=== PATIENT | male | born 1935 | race Caucasian/White ===

== ENCOUNTER 2016-08-14 00:21 | Emergency (ER) | payer OTHER, MEDICARE ==
[~2016-08-14 00:21] MED LIST: ALLOPURINOL300 MG PO; CALCIUM CARBON500 MG PO; COREG12.5 MG PO; COZAAR25 MG PO; EC-81 ASPIRIN81 MG PO; HUMALIN R100 UNITS/ SC; LIPITOR20 MG PO; LOPRESSOR25 MG PO; METFORMIN HCL500 MG PO; METOPROLOL SUCC25 MG PO; PLAVIX75 MG PO; VITAMIN D-31000 UNIT PO
--- NOTE | 2016-08-14 03:36 | ED CLINICAL REPORT ---
Clinical Report - Physicians/Mid Levels [facility] [address] [place] [address] 08/14/2016 0:24 Patient: YOU DALTON Time Seen: 0027. Arrived- By private vehicle. Historian- patient. HISTORY OF PRESENT ILLNESS Chief Complaint: HEADACHE. Is still present (no change). This started past several days. It was abrupt in onset and has been intermittent but is not gone now. Onset during rest. It is described as "pain". No neck pain. At its maximum, severity described as moderate. When seen in the E.D., severity described as moderate. Modifying factors: relieved by nothing. Not worsened by anything. No preceding symptoms, blurred vision, photophobia, numbness or weakness. No recent travel. Similar symptoms previously: None. Recent medical care: Not recently seen/assessed. REVIEW OF SYSTEMS No skin rash. All systems otherwise negative, except as recorded above. PAST HISTORY See nurses notes. Medications: HumuLIN N Subcutaneous 70 units , in AM and PM. HumuLIN R Injection 15 uNITS, 3 X daily (before each meal). Losartan Potassium Oral, daily. MetFORMIN HCl Oral 1000 in AM and 1500 in PM. Metoprolol Tartrate Oral unknown, daily. Allergies: Vicodin. Definite Severe(swelling). SOCIAL HISTORY Never smoker. No alcohol use or drug use. No recent travel. Is a local resident. ADDITIONAL NOTES The nursing notes have been reviewed. PHYSICAL EXAM Vital Signs: 08/14/2016 00:27 BP: 198/84. HR: 116. RR: 28. O2 saturation: 95%. Temp: 98.3 F. Pain level now: 8/10. Hypertensive. Oxygen saturation normal. Appearance: Alert. No acute distress. Eyes: Pupils equal, round and reactive to light. Eyes normal inspection. No conjunctival findings. (pupils are equally round and reactive to light at 4 mm. Extraocular movements are intact. No nystagmus. Funduscopic examination without any signs of papilledema. Normal retinal vasculature.). ENT: Ears normal. Nose normal. Pharynx normal. Neck: Normal inspection. Neck supple. CVS: Normal heart rate and rhythm. Heart sounds normal. Pulses normal. Respiratory: No respiratory distress. Breath sounds normal. Abdomen: Soft and nontender. No organomegaly. Skin: Skin warm and dry. Normal skin color. No rash. Normal skin turgor. Extremities: Extremities exhibit normal ROM. No lower extremity edema. Neuro: Oriented X 3. Alert. Mood/affect normal. Speech normal. Cranial nerves normal (as tested). No cerebellar findings. No motor deficit. No sensory deficit. Reflexes normal. LABS, X-RAYS, AND EKG EKG: Normal sinus rhythm. Normal P waves. Normal JEREMIAS. Normal QRS complex. Normal axis. Normal ST and T waves, QT and QTc. The study has been interpreted contemporaneously by me. The study has been independently viewed by me. The EKG appears to be a good tracing. PROGRESS AND PROCEDURES Course of Care: the patient is a pleasant 81-year-old male with past medical history significant for diabetes and hypertension presenting for evaluation of headache. Patient's headache is intermittent. Does not appear to be consistent with subarachnoid hemorrhage or meningitis. Patient will be given a course of medications to treat his headache. We'll also provide patient with antihypertensives IVWhite's here in the emergency department for his elevated blood pressure. Patient's examination Does not show any signs of focal neurological deficit. Patient is agreeable to treatment plan. Patient's headache is likely result of elevated blood pressure. Suspect that once patient's blood pressures improved as well as with headache medication, patient will feel significantly better. Patient's blood pressure had significantly improved. Patient's headache is also well controlled here in the emergency department. Because of the patient's nonfocal examination improved symptoms as well as overall nontoxic appearance, feel the patient is a good outpatient candidate. I discussion with patient in regards to elevated blood pressure and future risks of cardiac disease as well as stroke in the future. Recommended patient have a dialogue with his doctor in regards to blood pressure medication control as well as starting and diary to monitor blood pressures throughout the day. Discussed with patient his workup here in the emergency department including home care, follow-up, and return precautions. All questions have been answered. The patient expressed understanding of these instructions and was agreeable to them. Disposition: Discharged. Condition: good. CLINICAL IMPRESSION Acute headache. Uncontrolled essential hypertension (acute). INSTRUCTIONS Warnings: GENERAL WARNINGS: Return or contact your physician immediately if your condition worsens or changes unexpectedly, if not improving as expected, or if other problems arise. SPECIFICALLY, return if you develop fever, vomiting, numbness, weakness, difficulty thinking, visual disturbances, fainting or extreme fatigue. Your Current Medications: CONTINUE TAKING THE FOLLOWING MEDICATIONS: HumuLIN N Subcutaneous : 70 units in AM and PM. HumuLIN R Injection : 15 uNITS 3 X daily, before each meal. Losartan Potassium Oral : daily. MetFORMIN HCl Oral : 1000 in AM and 1500 in PM. Metoprolol Tartrate Oral : unknown daily. Follow-up: Return to the emergency department as needed. Follow up with your doctor in three days. Reason for referral: recheck today's concerns. Summary of care provided to patient via paper. Screening today revealed the patient's blood pressure to be in the normal range. The patient should follow up with a primary care provider for blood pressure management. Understanding of the discharge instructions verbalized by patient. (Electronically signed by Jay Livingston Dr. 08/19/2016 3:06)
--- NOTE | 2016-08-14 03:36 | ED ORDER SUMMARY ---
..... Patient: YOU DALTON OrderSheet [facility] VisitID: [id number] [place] [address] 81y, M Registration Date/Time: 08/14/2016 ORDER SHEET Weight: 117.9 kg (stated) Allergies: Vicodin GENERAL ORDERS: EKG - ER Stat (00:51 08/14/2016 DDavis R.N. per protocol) (Ack 0:52 SRedmond) (0:58 LMuller) MEDICATION ORDERS: Phenergan IV 25 mg (HIGH ALERT MEDICATION, NOW) (01:16 08/14/2016 Marion Sharp) (Ack 1:20 DDavis R.N.) (1:42 DDavis R.N.) - (lisinopril 20 mg PO once) (02:09 08/14/2016 Marion Sharp) (2:15 EInderbitzen R.N.) IV FLUIDS: Toradol IV 30 mg (NOW) (01:16 08/14/2016 Marion Sharp) (Ack 1:20 DDavis R.N.) (1:42 DDavis R.N.) Benadryl IV 25 mg (NOW) (01:16 08/14/2016 Marion Sharp) (Ack 1:20 DDavis R.N.) (1:41 DDavis R.N.) Metoprolol IV 5 mg (HIGH ALERT MEDICATION, NOW) (01:17 08/14/2016 Marion Sharp) (Ack 1:20 DDavis R.N.) (1:41 DDavis R.N.) Metoprolol IV 5 mg (HIGH ALERT MEDICATION, NOW) (02:54 08/14/2016 Marion Sharp) (3:20 DDavis R.N.) ORDER SHEET NOTES: [Electronically signed by Oli Mendez R.N. (03:48 08/14/2016)] [Electronically signed by Jay Livingston Dr. (03:06 08/19/2016)] [Electronically locked/signed by Oli Mendez R.N. (03:48 08/14/2016)]
--- NOTE | 2016-08-14 03:36 | ED ORDER SUMMARY ---
..... Patient: YOU DALTON OrderSheet [facility] VisitID: [id number] [place] [address] 81y, M Registration Date/Time: 08/14/2016 ORDER SHEET Weight: 117.9 kg (stated) Allergies: Vicodin GENERAL ORDERS: EKG - ER Stat (00:51 08/14/2016 DDavis R.N. per protocol) (Ack 0:52 SRedmond) (0:58 LMuller) MEDICATION ORDERS: Phenergan IV 25 mg (HIGH ALERT MEDICATION, NOW) (01:16 08/14/2016 Marion Sharp) (Ack 1:20 DDavis R.N.) (1:42 DDavis R.N.) - (lisinopril 20 mg PO once) (02:09 08/14/2016 Marion Sharp) (2:15 EInderbitzen R.N.) IV FLUIDS: Toradol IV 30 mg (NOW) (01:16 08/14/2016 Marion Sharp) (Ack 1:20 DDavis R.N.) (1:42 DDavis R.N.) Benadryl IV 25 mg (NOW) (01:16 08/14/2016 Marion Sharp) (Ack 1:20 DDavis R.N.) (1:41 DDavis R.N.) Metoprolol IV 5 mg (HIGH ALERT MEDICATION, NOW) (01:17 08/14/2016 Marion Sharp) (Ack 1:20 DDavis R.N.) (1:41 DDavis R.N.) Metoprolol IV 5 mg (HIGH ALERT MEDICATION, NOW) (02:54 08/14/2016 Marion Sharp) (3:20 DDavis R.N.) ORDER SHEET NOTES: [Electronically signed by Oli Mendez R.N. (03:48 08/14/2016)] [Electronically signed by Jay Livingston Dr. (03:06 08/19/2016)] [Electronically locked/signed by Oli Mendez R.N. (03:48 08/14/2016)]
--- NOTE | 2016-08-14 03:36 | ED NURSING NOTES ---
Clinical Report - Nurses [facility] [address] [place] [address] 08/14/2016 0:24 [id number] Triage time 00:28. Acuity: LEVEL 3. Chief Complaint: HEADACHE and (high blood pressure). Alert. DONAL COMA SCORE: Donal Coma Scale: 15- eyes open spontaneously (4); best verbal response- oriented x 4 (5); best motor response- obeys commands (6). --00:31 Oli Mendez R.N. 00:27 08/14/16. BP: 198/84 taken on the left arm, via an automated monitor, while sitting. HR: 116. RR: 28 (regular and unlabored). O2 saturation: 95% on room air. Temp: 98.3 F. Pain level now: 12/17. --00:31 Oli Mendez R.N. Weight: 117.9 kg stated. Height/Length: 70 inches Per Patient. BMI: 37.3. --00:27 Oli Mendez R.N. Medications HumuLIN N Subcutaneous 70 units , in AM and PM. HumuLIN R Injection 15 uNITS, 3 X daily (before each meal). Losartan Potassium Oral, daily. MetFORMIN HCl Oral 1000 in AM and 1500 in PM. Metoprolol Tartrate Oral unknown, daily. --00:29 Oli Mendez R.N. Allergies Vicodin. Definite Severe(swelling) --00:29 Oli Mendez R.N. History Arrived by private vehicle. Historian: patient. Accompanied by spouse. The patient has had nausea. SOCIAL HX: Never smoker. No alcohol use or drug use. --00:31 Oli Mendez R.N. This started 5 days ago. --00:32 Oli Mendez R.N. PROBLEMS: Neuropathy. Diabetes Mellitus. --00:29 Oli Mendez R.N. ADDITIONAL SURGERIES: Angioplasty of blood vessel. one Stent of cardia artery . Shoulder Surgery. Tonsillectomy. --00:29 Oli Mendez R.N. Interventions ID band on patient. To treatment room. --00:31 Oli Mendez R.N. PHYSICAL ASSESSMENT To room via wheelchair. ( pt states having an intermittent headache for "5 days" and having nausea with one episode of vomiting tonight.). GENERAL / NEURO / PSYCH: Alert. Oriented X 4. Speech within normal limits. RESPIRATORY: Respirations not labored. Breath sounds within normal limits. CVS: Capillary refill less than 2 seconds. SKIN: Skin is warm and dry. --00:33 Oli Mendez R.N. ( sinus rhythm on monitor). --00:34 Oli Mendez R.N. NURSING PROGRESS NOTES telecom coordinator, pulse oximeter and NIBP monitor placed on patient. Head of bed elevated. Reassurance given. Two patient identifiers checked. Call light placed in reach. Side rails up x 1. Bed placed in lowest position. Brakes of bed on. Patient ready for evaluation- chart flagged. Patient waiting for evaluation. --00:34 Oli Mendez R.N. 00:48 08/14/2016 Site #1 started via IV in the left hand with an 20g angiocath, with aseptic technique and good blood return; one attempt. Blood drawn. Labeled in the presence of the patient and held. Saline lock flushed with 10 mL saline. --00:48 Sruthi Kitchen R.N. ( EKG completed at 00:[address] Jay Hayes). --01:00 Oli Mendez R.N. <<STRICKEN ENTRY-- 01:31 08/14/2016 Metoprolol (Metoprolol Tartrate) IVP 5 mg given over 2 minute(s) via site #1. Allergies verified and confirmed 5 rights. IV patency established. IV site checked: no pain, redness, or swelling. IV flushed thoroughly pre- and post-medication administration. IVP given by RN. --01:41 Oli Mendez R.N. --END STRIKE>> Correction. Charted in error, 1 mg was given at this time. Dr. Jay Hayes was notified and is aware of error. --03:24 Oli Mendez R.N. 01:31 08/14/2016 Metoprolol (Metoprolol Tartrate) IVP 1 mg given over 2 minute(s) via site #1. Allergies verified and confirmed 5 rights. IV patency established. IV site checked: no pain, redness, or swelling. IV flushed thoroughly pre- and post-medication administration. IVP given by RN. --03:24 Oli Mendez R.N. 01:33 08/14/2016 Benadryl (DiphenhydrAMINE HCl) IVP 25 mg given over 2 minute(s) via site #1. Allergies verified, confirmed 5 rights and sedative warning given to the patient. IV patency established. IV site checked: no pain, redness, or swelling. IV flushed thoroughly pre- and post-medication administration. IVP given by RN. --01:41 Oli Mendez R.N. 01:36 08/14/2016 PHENERGAN (Promethazine HCl) IVP 25 mg given over 2 minute(s) via site #1. Allergies verified and confirmed 5 rights. IV patency established. IV site checked: no pain, redness, or swelling. IV flushed thoroughly pre- and post-medication administration. IVP given by RN. --01:42 Oli Mendez R.N. 01:38 08/14/2016 Toradol IVP 30 mg given over 2 minute(s) via site #1. Allergies verified and confirmed 5 rights. IV patency established. IV site checked: no pain, redness, or swelling. IV flushed thoroughly pre- and post-medication administration. IVP given by RN. --01:42 Oli Mendez R.N. 02:15 08/14/2016 Lisinopril PO Tablets 20 mg given. Allergies verified and confirmed 5 rights. --02:15 Ninfa Mosley R.N. 03:15 08/14/2016 Metoprolol (Metoprolol Tartrate) IVP 5 mg given over 5 minute(s) via site #1. Allergies verified and confirmed 5 rights. IV patency established. IV site checked: no pain, redness, or swelling. IV flushed thoroughly pre- and post-medication administration. IVP given by RN. --03:21 Oli Mendez R.N. DISPOSITION / DISCHARGE 03:40 08/14/2016 Site #1 removed upon discharge. Manual pressure and bandage applied. --03:45 Oli Menedz R.N. Departure time: 03:45. Condition at departure: improved and stable. No learning barriers present. Discharge instructions provided and reviewed with the patient and spouse. Reviewed warnings. Treatments reviewed. Reviewed referrals. Patient verbalized understanding. Written instructions provided in Latvian. The patient was discharged home and accompanied by spouse. He left the Emergency Department in a wheelchair and via private vehicle. Spouse driving. --03:47 Oli Mendez R.N. 03:45 08/14/16. BP: 162/76 taken while sitting. HR: 73 (regular). RR: 27 (regular and unlabored). O2 saturation: 96% on room air. Pain level now: 05/19. Additional comments: NSR on monitor. --03:47 Oli Mendez R.N. Locked/Released at 08/14/2016 3:48 by Oli Mendez R.N.
--- NOTE | 2016-08-19 03:07 | ED MED RECONCILIATION SUMMARY ---
Patient: YOU DALTON Medication Reconciliation Report [facility] VisitID: [id number] [address] [place] [address] 81y, M Registration Date/Time: 08/14/2016 Weight: 117.9 kg Height/Length: 70 in. BMI: 37.3 ALLERGIES: Vicodin The patient's Home Medications are listed below: CONTINUE TAKING THE FOLLOWING MEDICATIONS: HumuLIN N Subcutaneous 70 units , in AM and PM HumuLIN R Injection 15 uNITS, 3 X daily, before each meal Losartan Potassium Oral, daily MetFORMIN HCl Oral 1000 in AM and 1500 in PM Metoprolol Tartrate Oral unknown, daily The source(s) of the original Home Medication information: Not obtained. The following Medications were given to the patient in the Emergency Department: Metoprolol [IVP] IVP 1 mg, administered: 08/14/2016 1:31:00 AM Benadryl [IVP] IVP 25 mg, administered: 08/14/2016 1:33:00 AM PHENERGAN [IVP] IVP 25 mg, administered: 08/14/2016 1:36:00 AM Toradol [IVP] IVP 30 mg, administered: 08/14/2016 1:38:00 AM Lisinopril [PO] PO 20 mg, administered: 08/14/2016 2:15:00 AM Metoprolol [IVP] IVP 5 mg, administered: 08/14/2016 3:15:00 AM The following Medications were prescribed to the patient: None.
--- NOTE | 2016-08-19 03:07 | ED MED RECONCILIATION SUMMARY ---
Patient: YOU DALTON Medication Reconciliation Report [facility] VisitID: [id number] [address] [place] [address] 81y, M Registration Date/Time: 08/14/2016 Weight: 117.9 kg Height/Length: 70 in. BMI: 37.3 ALLERGIES: Vicodin The patient's Home Medications are listed below: CONTINUE TAKING THE FOLLOWING MEDICATIONS: HumuLIN N Subcutaneous 70 units , in AM and PM HumuLIN R Injection 15 uNITS, 3 X daily, before each meal Losartan Potassium Oral, daily MetFORMIN HCl Oral 1000 in AM and 1500 in PM Metoprolol Tartrate Oral unknown, daily The source(s) of the original Home Medication information: Not obtained. The following Medications were given to the patient in the Emergency Department: Metoprolol [IVP] IVP 1 mg, administered: 08/14/2016 1:31:00 AM Benadryl [IVP] IVP 25 mg, administered: 08/14/2016 1:33:00 AM PHENERGAN [IVP] IVP 25 mg, administered: 08/14/2016 1:36:00 AM Toradol [IVP] IVP 30 mg, administered: 08/14/2016 1:38:00 AM Lisinopril [PO] PO 20 mg, administered: 08/14/2016 2:15:00 AM Metoprolol [IVP] IVP 5 mg, administered: 08/14/2016 3:15:00 AM The following Medications were prescribed to the patient: None.
--- NOTE | 2016-08-19 03:07 | ED DISCHARGE INSTRUCTIONS ---
Patient: YOU DALTON General Instructions [facility] VisitID: [id number] [place] [address] 81y, M Registration Date/Time: 08/14/2016 Acute headache. Uncontrolled essential hypertension (acute). INSTRUCTIONS Warnings: GENERAL WARNINGS: Return or contact your physician immediately if your condition worsens or changes unexpectedly, if not improving as expected, or if other problems arise. SPECIFICALLY, return if you develop fever, vomiting, numbness, weakness, difficulty thinking, visual disturbances, fainting or extreme fatigue. Your Current Medications: CONTINUE TAKING THE FOLLOWING MEDICATIONS: HumuLIN N Subcutaneous : 70 units in AM and PM. HumuLIN R Injection : 15 uNITS 3 X daily, before each meal. Losartan Potassium Oral : daily. MetFORMIN HCl Oral : 1000 in AM and 1500 in PM. Metoprolol Tartrate Oral : unknown daily. Follow-up: Return to the emergency department as needed. Follow up with your doctor in three days. Reason for referral: recheck today's concerns. Summary of care provided to patient via paper. Screening today revealed the patient's blood pressure to be in the normal range. The patient should follow up with a primary care provider for blood pressure management. Understanding of the discharge instructions verbalized by patient. ADDITIONAL INFORMATION Hypertension, Out Of Control (Established) Your blood pressure was unusually high today. This can occur as a result of missing doses of your blood pressure medicine. Some asthma inhalers, decongestants, diet pills, and street drugs such as cocaine and amphetamine can worsen hypertension. An increase in body weight, increase in salt intake, smoking, and caffeine are other causes. Emotional upset or acute pain can cause a sudden rapid rise in blood pressure which may return to normal after a period of rest. A normal blood pressure is less than 140/90. The first (top) number is the systolic pressure. The second (bottom) number is the diastolic pressure. Hypertension exists when either the top number is 140 or higher, OR the bottom number is 90 or higher on repeated measurements. Home Care: All patients with high blood pressure should do the following to lower their pressure. If you are on blood pressure medicines, then these methods may reduce or eliminate your need for medicines in the future. Begin a weight-loss program if you are overweight. Reduce your salt intake. Avoid high-salt foods (olives, pickles, smoked meats, salted potato chips, etc.). Do not add salt to your food at the table. Use only small amounts of salt when cooking. Begin an exercise program. Discuss with your doctor what type of exercise program would be best for you. It doesnt have to be difficult. Even brisk walking for 20 minutes3 times a week is a good form of exercise. Avoid medicines which contain heart stimulants. This includes many cold and sinus decongestant pills and sprays as well as diet pills. Check the warnings about hypertension on the label. Stimulants such as amphetamine or cocaine could be lethal for someone with hypertension. Never take these. Limit your caffeine intake or switch to decaf. Stop smoking. If you are a long-time smoker, this can be hard. Enroll in a stop-smoking program to improve your chance of success. Talk to your physician about ways to improve your chance of success. Learning how to handle stress better is an important part of any program to lower blood pressure. Learn about relaxation methods such as meditation, yoga, or biofeedback. If medicines were prescribed, take them exactly as directed. Missing doses may cause your blood pressure to get out of control. Consider buying an automatic blood pressure machine (available at many pharmacies). Use this to monitor your blood pressure and report to your doctor. Follow Up: Regular visits to your own doctor for blood pressure checks and medicine adjustment is an important part of your care. Make a follow-up appointment as directed by our staff. Get Prompt Medical Attention if any of the following occur: Chest, arm, shoulder, neck, or upper back pain Shortness of breath Severe headache Throbbing or rushing sound in the ears Nosebleed Extreme drowsiness, confusion, or fainting Dizziness or vertigo (dizziness with spinning sensation) Weakness of an arm or leg or one side of the face Difficulty with speech or vision Headache [Unspecified] The cause of your headache today is not clear, but it does not appear to be the sign of any serious illness. Under stress, some people tense the muscles of their shoulder, neck and scalp without knowing it. If this condition lasts long enough, a TENSION HEADACHE can occur. A MIGRAINE HEADACHE is caused by changes in blood flow to the brain. A migraine attack may be triggered by emotional stress, hormone changes during the menstrual cycle, oral contraceptives, alcohol use, certain foods containing tyramine, eye strain, weather changes, missing meals, lack of sleep or oversleeping. Other causes of headache include a viral illness with high fever, head injury with concussion, sinus, ear or throat infection, dental pain and TMJ (jaw joint) pain. More serious but less common causes of headache include stroke, brain hemorrhage, brain tumor, meningitis and encephalitis. Home Care: If you were given pain medicine for this headache, do not drive yourself home. Arrange for a ride, instead. When you get home, try to sleep. You should feel much better when you wake up. Apply heat to the back of your neck to relieve neck muscle spasm. Migraine headaches may respond best to an ice pack on the forehead or at the base of the skull. If you are having nausea or vomiting, follow a light diet until your headache is relieved. If you have a migraine type headache, use sunglasses when in the daylight or around bright indoor lighting until symptoms improve. Bright glaring light can worsen this kind of headache. Follow Up with your doctor if the headache is not better within the next 24 hours. If you have frequent headaches you should discuss a treatment plan with your primary care doctor. By being aware of the earliest signs of headache, and starting treatment right away, you may be able to stop the pain yourself. Get Prompt Medical Attention if any of the following occur: Worsening of your head pain or no improvement within 24 hours Repeated vomiting (unable to keep liquids down) Fever of 100.4F (38C) or higher, or as directed by your healthcare provider Stiff neck Extreme drowsiness, confusion or fainting Dizziness, vertigo (dizziness with spinning sensation) Weakness of an arm or leg or one side of the face Difficulty with speech or vision You have been given the following additional information: Hypertension, Established, Out Of Control Headache, Unspecified (Electronically signed by Jay Livingston Dr. 08/19/2016 3:06)
--- NOTE | 2016-08-19 03:07 | ED MAR SUMMARY ---
..... Medication Administration Record [facility] [address] [place] [address] Patient: YOU DALTON Visit ID: [id number] 81y, M Weight: 117.9 kg Height/Length: 70 in BMI: 37.3 ALLERGIES: Vicodin Given 01:31 08/14/2016 Oli Mendez R.N. Medication Administered: METOPROLOL [IVP] (METOPROLOL TARTRATE), Dose: 1 mg IVP over 2 minute(s), Site: #1 left hand. Medication Ordered: Metoprolol IV 5 mg (HIGH ALERT MEDICATION, NOW). Given 01:33 08/14/2016 Oli Mendez R.N. Medication Administered: BENADRYL [IVP] (DIPHENHYDRAMINE HCL), Dose: 25 mg IVP over 2 minute(s), Site: #1 left hand. Medication Ordered: Benadryl IV 25 mg (NOW). Given 01:36 08/14/2016 Oli Mendez R.N. Medication Administered: PHENERGAN [IVP] (PROMETHAZINE HCL), Dose: 25 mg IVP over 2 minute(s), Site: #1 left hand. Medication Ordered: Phenergan IV 25 mg (HIGH ALERT MEDICATION, NOW). Given 01:38 08/14/2016 Oli Mendez R.N. Medication Administered: TORADOL [IVP], Dose: 30 mg IVP over 2 minute(s), Site: #1 left hand. Medication Ordered: Toradol IV 30 mg (NOW). Given 02:08/14/2016 Ninfa Mosley R.N. Medication Administered: LISINOPRIL [PO], Dose: 20 mg Tablets PO. Medication Ordered: - (lisinopril 20 mg PO once). Given 03:08/14/2016 Oli Mendez R.N. Medication Administered: METOPROLOL [IVP] (METOPROLOL TARTRATE), Dose: 5 mg IVP over 5 minute(s), Site: #1 left hand. Medication Ordered: Metoprolol IV 5 mg (HIGH ALERT MEDICATION, NOW).
--- NOTE | 2016-08-19 03:07 | ED MAR SUMMARY ---
..... Medication Administration Record [facility] [address] [place] [place] [address] Patient: YOU DALTON Visit ID: [id number] 81y, M Weight: 117.9 kg Height/Length: 70 in BMI: 37.3 ALLERGIES: Vicodin Given 01:31 08/14/2016 Oli Mendez R.N. Medication Administered: METOPROLOL [IVP] (METOPROLOL TARTRATE), Dose: 1 mg IVP over 2 minute(s), Site: #1 left hand. Medication Ordered: Metoprolol IV 5 mg (HIGH ALERT MEDICATION, NOW). Given 01:33 08/14/2016 Oli Mendez R.N. Medication Administered: BENADRYL [IVP] (DIPHENHYDRAMINE HCL), Dose: 25 mg IVP over 2 minute(s), Site: #1 left hand. Medication Ordered: Benadryl IV 25 mg (NOW). Given 01:36 08/14/2016 Oli Mendez R.N. Medication Administered: PHENERGAN [IVP] (PROMETHAZINE HCL), Dose: 25 mg IVP over 2 minute(s), Site: #1 left hand. Medication Ordered: Phenergan IV 25 mg (HIGH ALERT MEDICATION, NOW). Given 01:38 08/14/2016 Oli Mendez R.N. Medication Administered: TORADOL [IVP], Dose: 30 mg IVP over 2 minute(s), Site: #1 left hand. Medication Ordered: Toradol IV 30 mg (NOW). Given 02:08/14/2016 Ninfa Mosley R.N. Medication Administered: LISINOPRIL [PO], Dose: 20 mg Tablets PO. Medication Ordered: - (lisinopril 20 mg PO once). Given 03:08/14/2016 Oli Mendez R.N. Medication Administered: METOPROLOL [IVP] (METOPROLOL TARTRATE), Dose: 5 mg IVP over 5 minute(s), Site: #1 left hand. Medication Ordered: Metoprolol IV 5 mg (HIGH ALERT MEDICATION, NOW).
== END 2016-08-14 03:45 | disposition home or self-care (01) ==
LOC: ED SRH 00:21
DX: R51 Headache (principal); I10 Essential (primary) hypertension; E11.9 Type 2 diabetes mellitus without complications; Z79.4 Long term (current) use of insulin; Z79.84 Long term (current) use of oral hypoglycemic drugs; Z79.899 Other long term (current) drug therapy; Z88.5 Allergy status to narcotic agent